=== PATIENT | female | born 1985 | race Caucasian/White ===

== ENCOUNTER 2023-10-13 15:50 | Emergency (ER) | payer OTHER ==
[2023-10-13 15:58] VITALS: BP 124/74; PULSE 86; RESP 19; TEMP 98.2; BMI 23.6
[2023-10-13] MEDS: KETOROLAC TROMETHAMINE 30 MG/1 ML VIAL IM ONE (16:36)
[2023-10-13] MEDS ORDERED: KETOROLAC TROMETHAMINE 30 MG/1 ML VIAL ONE (16:36)
== END 2023-10-13 17:50 | disposition home or self-care (01) ==
LOC: JERFT 15:50
PROC: 3E0133Z Introduction of Anti-inflammatory into Subcutaneous Tissue, Percutaneous Approach (ICD-10-PCS; principal; 2023-10-13)
DX: S83.91XA Sprain of unspecified site of right knee, initial encounter (principal); X50.1XXA Overexertion from prolonged static or awkward postures, initial encounter
CPT/HCPCS: 73564-TC-RT-FY; 99284-25